=== PATIENT | female | born 1960 | race Two or more races ===

== ENCOUNTER 2018-10-10 14:14 | Outpatient (CLI) | payer OTHER | END 2018-10-10 14:16 | disposition home or self-care (01) | LOC: RAD 14:14 | DX: M25.512 Pain in left shoulder (principal) ==

== ENCOUNTER → 2018-10-27 | Outpatient (CLI) | payer OTHER | END | disposition home or self-care (01) | LOC: RAD 14:01 | DX: R07.89 Other chest pain (principal); Z01.818 Encounter for other preprocedural examination ==

== ENCOUNTER 2018-11-09 13:32 | Outpatient (CLI) | payer OTHER | END 2018-11-09 13:34 | disposition home or self-care (01) | LOC: RAD 13:32 | DX: M17.11 Unilateral primary osteoarthritis, right knee (principal); Z12.12 Encounter for screening for malignant neoplasm of rectum ==